=== PATIENT | male | born 1940 | race Caucasian/White ===

== ENCOUNTER 2019-06-30 13:23 | Emergency (ER) | payer OTHER ==
[~2019-06-30] VITALS: Ht 195.6 cm; Wt 102.1 kg
[2019-06-30 13:30] VITALS: BP 172/106
--- NOTE | 2019-06-30 13:44 | NUR ---
Patient ambulated to bed 2 with family. RN evaluating patient at bedside.
--- NOTE | 2019-06-30 13:44 | NUR ---
78 Y/O MALE C/O CHEST PAIN X 2HOURS. PATIENT TOOK NTG X3; ASA 325 X4; AMIODARONE 200MG; AND OMEPRAZOLE. NO RELIEF. BREATHING UNLABORED AND SYMMETRICAL; CLEAR LUNG SOUNDS THROUGHOUT; 95% ON RA; CHEST PAIN IS LOCATED IN THE MIDEPIGASTRIC REGION; NONRADIATING 10/14. DENIES N/V/D. ERMD MADE AWARE OF STATUS. SIDE RAILSX1. PLACED ON MONITOR. WILL CONTINUE TO MONITOR. PMH: QUADRUPLE BYPASS (2009); HIGH BLOOD PRESSURE; INDIGESTION; HIGH CHOLESTEROL; BLOOD CLOTS RX: AMIODARONE; TRAMADOL; OMEPRAZOLE; CARVEDILOL;ATORVASTATIN; ISOSORBIDE MONOITRATE; XARELTO; HCTZ' LOSARTAN; BREO; ASPIRIN
[2019-06-30 14:13] LABS: BASOPHILS % (AUTO) 0.4 % (0.0-2.0); EOSINOPHILS # (AUTO) 0.1 K/uL (0-0.4); EOSINOPHILS % (AUTO) 1.7 % (0.0-4.0); HEMATOCRIT 46.8 % (36-52); HEMOGLOBIN 15.5 g/dL (12.0-18.0); LYMPHOCYTES # (AUTO) 0.8 K/uL (2.0-11.5); LYMPHOCYTES % (AUTO) 10.9 % (20.5-51.1); MEAN CORPUSCULAR HEMOGLOBIN 34 pg (27-31); MEAN CORPUSCULAR HGB CONC 33 g/dL (33-37); MEAN CORPUSCULAR VOLUME 103.2 fL (80-94); MONOCYTES # (AUTO) 0.6 K/uL (0.8-1.0); MONOCYTES % (AUTO) 7.7 % (1.7-9.3); NEUTROPHILS % (AUTO) 79.3 % (42.2-75.2); PLATELET COUNT (AUTO) 149 K/uL (140-450); RED BLOOD CELL COUNT(AUTO) 4.53 MIL/uL (4.20-6.10); RED CELL DISTRIBUTION WIDTH 13.2 % (11.6-13.7); WHITE BLOOD COUNT (AUTO) 7.6 K/uL (4.8-10.8)
--- NOTE | 2019-06-30 14:15 | NUR ---
X-RAY AT BEDSIDE.
[2019-06-30 14:27] LABS: ANION GAP 12.3 (8-16); CARBON DIOXIDE 30.7 mmol/L (21-32); CHLORIDE 99 mmol/L (98-107); CREATININE 1.3 mg/dL (0.7-1.3); GLUCOSE 117 mg/dL (74-106); SODIUM SERUM 138 mmol/L (136-145); UREA NITROGEN, BLOOD 22 mg/dL (7-18)
[2019-06-30 14:34] LABS: ALBUMIN 3.6 g/dL (3.4-5.0); ASPARTATE AMINOTRANSFERASE 15 U/L (15-37); TOTAL BILIRUBIN 0.7 mg/dL (0.0-1.0)
[2019-06-30] MEDS ORDERED: MORPHINE SULFATE 4 MG/ML SYR IVP ONE ×2 (15:00→21:40)
[2019-06-30] MEDS ORDERED: ONDANSETRON 4 MG/2 ML VIAL IVP ONE ×2 (15:00→21:45)
[2019-06-30] MEDS ORDERED: AMIO200T5 PO (15:25)
[2019-06-30] MEDS ORDERED: TRAM50TA1 PO ×2 (15:26→15:28)
[2019-06-30] MEDS ORDERED: OMEP20TC12 PO (15:27)
[2019-06-30] MEDS ORDERED: CARV6.25 PO (15:29)
[2019-06-30] MEDS ORDERED: ISOS60TE3 PO (15:31)
[2019-06-30] MEDS ORDERED: RIVA20TA PO (15:31)
[2019-06-30] MEDS ORDERED: ATOR40TA PO (15:31)
[2019-06-30] MEDS ORDERED: ORE25 PO (15:34)
[2019-06-30] MEDS ORDERED: LOSA25TA43 PO (15:35)
[2019-06-30] MEDS ORDERED: FLUT1POW3 IH (15:36)
[2019-06-30] MEDS ORDERED: ASPI-1718 PO (15:38)
--- NOTE | 2019-06-30 15:44 | NUR ---
PT IS EATING CARDIC DIET IN THE BED. VSS. DAUGHTER IS AT BEDSIDE.
--- NOTE | 2019-06-30 16:52 | NUR ---
PT IS TALKING WITH DAUGHTER AT BEDSIDE. VSS. PT STATES HAVING 0/10 PAIN AT THIS TIME.
--- NOTE | 2019-06-30 17:54 | NUR ---
PT IS RESTING IN THE BED. VSS. DAUGHTER IS AT BEDSIDE.
--- NOTE | 2019-06-30 18:27 | NUR ---
CARDIAC FOOD GIVEN TO PT. PT IS EATING IN THE BED. VSS. DAUGHTER IS AT BEDSIDE.
--- NOTE | 2019-06-30 18:42 | NUR ---
SPOKE TO PT'S DAUGHTER AT BEDSIDE. FOR UPDATES OR EMERGENCY CAN CALL HER LAINEY DAIGLE IF SHE IS NOT HERE.
--- NOTE | 2019-06-30 19:07 | NUR ---
Pt report given to KRISTEN Hinojosa. Transfer of care at this time.
--- NOTE | 2019-06-30 19:08 | NUR ---
REPORT FROM AI PETERSON
[2019-06-30] MEDS ORDERED: ENOXAPARIN 60 MG/0.6 ML SYR SUBQ ONE (19:55)
[2019-06-30] MEDS ORDERED: ENOXAPARIN 30 MG/0.3 ML SYR SUBQ ONE (20:09)
--- NOTE | 2019-06-30 23:02 | NUR ---
CALLED LAB, RECIEVED CALL AT 1938 WITH LAB PERSONEL STATING TROPONIN 1.938, EMR DOES NOT HAVE SECOND TROPONIN INPUT.
--- NOTE | 2019-07-01 01:10 | NUR ---
SPOKE TO LILIA EGG CASER WITH [facility]. AWIATING CALL BACK FROM DR MEDINA REGARDING PT STATTUS, ACCEPTANCE AND ROOM AVAILABILITY.
--- NOTE | 2019-07-01 01:12 | NUR ---
PT resting in bed, AAOX4, denies pain at this time, no SOB, VSS.
--- NOTE | 2019-07-01 01:15 | NUR ---
SPOKE TO LILIA FLAT POLISHER FOR [facility]. INFORMED US THAT DR MEDINA NO LONGER ACCEPTING AND THAT PT NEEDS TO BE MOVED TO ANOTHER FACILITY WITH A SUPERVISOR CENTRAL SUPPLY AND BE TRANSFERED FROM ER TO ER.
--- NOTE | 2019-07-01 01:20 | NUR ---
ACCEPTING PHYSICIAN FROM [facility] DR SIDHU.
--- NOTE | 2019-07-01 01:24 | NUR ---
Patient to be transferred to [facility]. Is being transferred due to HIGHER LEVEL OF CARE. Receiving facility has accepting physician and available space. ER physician has signed transfer form. Patient or responsible democrat has agreed to transfer and signed form. Patient belongings inventoried and will be sent with patient. Copy of nursing notes, lab reports, EKG, Physicians Orders and X-rays to be sent with patient. Report called to KIRAN PETERSON at receiving facility. [facility] ambulance service has been called for transfer. ETA is 2 MINUTES.
--- NOTE | 2019-07-01 01:25 | NUR ---
BENITO PETERSON ATTEMPTED TO HAVE PT SIGN TRANSFER AGGREMENT. PT REFUSED AND STATES WANTS DAUGTER BEFORE MAKING MEDICAL DECISIONS.
--- NOTE | 2019-07-01 01:26 | NUR ---
PT refused to sign transfer request stating that he needs his daughter with him, notified charge nurse Darren.
--- NOTE | 2019-07-01 01:28 | NUR ---
DR HCO ON PHONE WITH DAUGHTER. DR CHO STATES MURTAZARENU BEKAH IS REFUSING TRANSFER. BEKAH IS POWER OF SUGGESTION CLERK. DR CHO EXPLAINED RATIONAL AND RISK/BENIFIT. DAUGHTER CONTINUED TO REFUSE TRANSFER.
--- NOTE | 2019-07-01 01:50 | NUR ---
DAUGHTER BEKAH ARRIVED TO .
--- NOTE | 2019-07-01 01:52 | NUR ---
BEKAH IS REFUSING TRANSPORTATION AT THIS TIME. SHE STATES SHE NEEDS PROOF THAT THE [facility] EKG TECHNICIAN IS INFACT A EKG TECHNICIAN. PT STATES HE WISHES TO TRANSFER AT THIS TIME.
[2019-07-01 02:03] VITALS: BP 140/94
--- NOTE | 2019-07-01 02:03 | NUR ---
PT LEFT VIA [facility].
--- NOTE | 2019-07-01 02:03 | NUR ---
Patient to be transferred to [facility] ER. Is being transferred due to higher level of care. Receiving facility has accepting physician and available space. ER physician has signed transfer form. Patient or responsible democrat has agreed to transfer and signed form. Patient belongings inventoried and will be sent with patient. Copy of nursing notes, lab reports, EKG, Physicians Orders and X-rays to be sent with patient. Report called to Chuckie PETERSON at receiving facility. [facility] ambulance service arrived for transfer.
== END 2019-07-01 02:03 | disposition short-term general hospital (02) ==
LOC: MED 13:23
DX: R07.89 Other chest pain (principal); R79.89 Other specified abnormal findings of blood chemistry; I10 Essential (primary) hypertension; E78.00 Pure hypercholesterolemia, unspecified; Z79.82 Long term (current) use of aspirin; Z79.899 Other long term (current) drug therapy
CPT/HCPCS: 36415; 71045; 80053; 83880; 84484; 85025; 85379; 93005; 96372; 96374; 96375; 96376; 99285; J1650; J2270; J2405; Q0092

== ENCOUNTER 2019-08-19 08:36 | Inpatient (IN) | payer OTHER ==
[~2019-08-19] VITALS: Ht 195.6 cm; Wt 109.8 kg
[~2019-08-19 08:36] MED LIST: AMIO200T5 PO; ASPI-1822 PO; ATOR40TA PO; CARV6.25 PO; FLUT1POW3 IH; ISOS60TE3 PO; LOSA25TA43 PO; OMEP20TC12 PO; ORE25 PO; RIVA20TA PO; TRAM50TA1 PO
[2019-08-19 08:44] VITALS: BP 111/67
--- NOTE | 2019-08-19 08:57 | NUR ---
PT WALKED TO ROOM 8 WITH CO BOOD DIARRHEA SINCE THIS MORNING. PT WAS A/OX4, SPEAKS FULL SENTENCES, FOLLOWS COMMAND, DENIES BRENNAN AND DIZZINESS. NO SOB. BREATHING EVEN. ABDOMEN ROUND AND SOFT. PT AMBULATES IN FLOOR IN STEADY GAIT.
--- NOTE | 2019-08-19 08:59 | NUR ---
DR. PARISH YEE TO EXAMINE PT.
[2019-08-19] MEDS ORDERED: NACL 0.9% 1,000 ML IV ONE (09:00)
--- NOTE | 2019-08-19 09:04 | NUR ---
LAB IS BEDSIDE TO DRAW BLOOD.
--- NOTE | 2019-08-19 09:20 | NUR ---
SL ESTABLISHED ON LAC. 20G. NS.0.9% BOLUS STARTED. BLOOD DRAWN AND PICKEDUP BY LAB. PT THEN WAS TAKEN TO CT.
[2019-08-19 09:30] LABS: BASOPHILS # (AUTO) 0.1 K/uL (0.00-0.22); BASOPHILS % (AUTO) 1.3 % (0.0-2.0); EOSINOPHILS # (AUTO) 0.3 K/uL (0-0.4); EOSINOPHILS % (AUTO) 4.2 % (0.0-4.0); HEMATOCRIT 41.7 % (36-52); HEMOGLOBIN 13.8 g/dL (12.0-18.0); LYMPHOCYTES # (AUTO) 1.1 K/uL (2.0-11.5); LYMPHOCYTES % (AUTO) 18.6 % (20.5-51.1); MEAN CORPUSCULAR HEMOGLOBIN 34 pg (27-31); MEAN CORPUSCULAR HGB CONC 33 g/dL (33-37); MEAN CORPUSCULAR VOLUME 102.1 fL (80-94); MONOCYTES # (AUTO) 0.7 K/uL (0.8-1.0); MONOCYTES % (AUTO) 11.6 % (1.7-9.3); NEUTROPHILS % (AUTO) 64.3 % (42.2-75.2); PLATELET COUNT (AUTO) 126 K/uL (140-450); RED BLOOD CELL COUNT(AUTO) 4.09 MIL/uL (4.20-6.10); RED CELL DISTRIBUTION WIDTH 13.2 % (11.6-13.7); WHITE BLOOD COUNT (AUTO) 6.2 K/uL (4.8-10.8)
[2019-08-19 09:49] LABS: ALBUMIN 3.8 g/dL (3.4-5.0); ASPARTATE AMINOTRANSFERASE 24 U/L (15-37); CARBON DIOXIDE 31.8 mmol/L (21-32); CHLORIDE 102 mmol/L (98-107); CREATININE 1.6 mg/dL (0.6-1.3); GLUCOSE 104 mg/dL (74-106); POTASSIUM 4.8 mmol/L (3.5-5.1); SODIUM SERUM 141 mmol/L (136-145); TOTAL BILIRUBIN 0.7 mg/dL (0.0-1.0); UREA NITROGEN, BLOOD 33 mg/dL (7-18)
[2019-08-19 09:58] LABS: PROTHROMBIN TIME 11.8 secs (10.8-13.4)
[2019-08-19] MEDS ORDERED: FURO-570 PO (12:11)
[2019-08-19] MEDS ORDERED: SACU1TAB9 PO (12:11)
--- NOTE | 2019-08-19 12:35 | NUR ---
RECEIVED PATIENT FROM ED NURSE FOR CONTINUITY OF CARE. PATIENT IS AAOX4. RESPIRATIONS EVEN AND UNLABORED, ROOM AIR. VISIBLE CHEST RISE NOTED. PATIENT HAS HX OF HEART ATTACK. ABDOMEN SOFT, NONTENDER. HX OF HERNIA. PATIENT IS DIAGNOSED WITH GI BLEED. CHIEF COMPLAINT IS BLOODY DIARRHEA X3. SKIN WARM, DRY, AND INTACT. IV IN THE LEFT AC GAUGE 20, SALINE LOCK. IV FLUSHED WELL. PATIENT IS AMBULATORY. BED IN LOW POSITION. CALL LIGHT IS WITHIN REACH. WILL CONTINUE TO MONITOR
--- NOTE | 2019-08-19 12:39 | NUR ---
PT GOT ROOM 112A IN MED/SURG. PT WAS SENT TO FLOOR BY W/C IN STABLE CONDITION. REPORT GIVEN TO FLOOR RN BEDSIDE.
--- NOTE | 2019-08-19 12:40 | NUR ---
MRSA NARES SWAB COLLECTED
--- NOTE | 2019-08-19 12:51 | NUR ---
RECEIVED A COPY OF PATIENT'S POLST AND POWER OF [employer]ITE SUGAR SUPERVISOR, BEKAH. HER PHONE NUMBER IS [phone].
--- NOTE | 2019-08-19 13:26 | NUR ---
GIVEN 2 WARM BLANKETS AND ICE CHIPS
--- NOTE | 2019-08-19 14:36 | NUR ---
RECEIVED A TELEPHONE ORDERS FROM DR. QUINTEROS: CLEAR LIQUID DIET; D5NS AT 75 ML/HR. CBC Q8H.. WILL CARRY ORDERS
--- NOTE | 2019-08-19 14:42 | NUR ---
LAB AT BEDSIDE FOR CBC
--- NOTE | 2019-08-19 14:45 | NUR ---
BEKAH, DAUGHTER OF THE PATIENT, IS COMPLAINING ABOUT PATIENT'S CARE. INFORMED THAT DR. QUINTEROS WILL COME AND TALK TO THE PATIENT AND HER.
[2019-08-19 14:51] LABS: BASOPHILS % (AUTO) 0.7 % (0.0-2.0); EOSINOPHILS # (AUTO) 0.1 K/uL (0-0.4); EOSINOPHILS % (AUTO) 2.6 % (0.0-4.0); HEMOGLOBIN 12.6 g/dL (12.0-18.0); LYMPHOCYTES # (AUTO) 0.7 K/uL (2.0-11.5); LYMPHOCYTES % (AUTO) 13.5 % (20.5-51.1); MEAN CORPUSCULAR HEMOGLOBIN 34 pg (27-31); MEAN CORPUSCULAR HGB CONC 33 g/dL (33-37); MEAN CORPUSCULAR VOLUME 101.8 fL (80-94); MONOCYTES # (AUTO) 0.5 K/uL (0.8-1.0); MONOCYTES % (AUTO) 8.8 % (1.7-9.3); NEUTROPHILS # (AUTO) 4.1 K/uL (1.8-7.7); NEUTROPHILS % (AUTO) 74.4 % (42.2-75.2); PLATELET COUNT (AUTO) 106 K/uL (140-450); RED BLOOD CELL COUNT(AUTO) 3.73 MIL/uL (4.20-6.10); RED CELL DISTRIBUTION WIDTH 13.2 % (11.6-13.7); WHITE BLOOD COUNT (AUTO) 5.5 K/uL (4.8-10.8)
[2019-08-19] MEDS: DEXT 5% /NACL 0.9% 1,000 ML IV SCH (14:54)
--- NOTE | 2019-08-19 14:54 | NUR ---
HANG IV BAG OF D5NS AT 75 ML/HR PER MD ORDER.
[2019-08-19] MEDS ORDERED: traMADol 50 MG TAB PO PRN (15:55)
[2019-08-19 16:00] VITALS: BP 118/66
[2019-08-19] MEDS ORDERED: diphenhydrAMINE 50 MG/ML VIAL IVP PRN (16:00)
[2019-08-19] MEDS ORDERED: IPRATROPIUM 0.02% 0.5 MG/2.5 ML NEBU INH PRN (16:00)
[2019-08-19] MEDS ORDERED: ALUMINUM HYD/MAG/SIMETHICONE 30 ML UDC PO PRN (16:00)
[2019-08-19] MEDS ORDERED: guaiFENesin DM 200/20 MG-10 ML 10 ML UDC PO PRN (16:00)
[2019-08-19] MEDS ORDERED: SODIUM PHOSPHATE 118 ML ENEM RC PRN (16:00)
[2019-08-19] MEDS ORDERED: ONDANSETRON 4 MG/2 ML VIAL IVP PRN (16:00)
[2019-08-19] MEDS ORDERED: ACETAMINOPHEN 650 MG SUPP RC PRN (16:00)
[2019-08-19] MEDS ORDERED: cloNIDine 0.1 MG TAB PO PRN (16:00)
[2019-08-19] MEDS ORDERED: ACETAMINOPHEN 325 MG TAB PO PRN (16:00)
[2019-08-19] MEDS ORDERED: MAG SULF 2000 MG/WATER PREMIX 50 ML IV PRN (16:00)
[2019-08-19] MEDS ORDERED: LORazepam 2 MG/ML VIAL IVP PRN (16:00)
[2019-08-19] MEDS ORDERED: MORPHINE SULFATE 2 MG/ML SYR IVP PRN (16:00)
[2019-08-19] MEDS ORDERED: BISACODYL 10 MG SUPP RC PRN (16:00)
[2019-08-19] MEDS ORDERED: ALBUTEROL 0.083% 2.5 MG/3 ML NEBU INH PRN (16:00)
[2019-08-19] MEDS ORDERED: DOCUSATE SODIUM 250 MG GELCAP PO PRN (16:00)
[2019-08-19] MEDS ORDERED: HYDROcodone/APAP 5/325 MG 1 TAB TAB PO PRN ×2 (16:00)
[2019-08-19] MEDS ORDERED: MAGNESIUM OXIDE 400 MG TAB PO PRN (16:00)
[2019-08-19] MEDS ORDERED: POTASSIUM CHLORIDE 10 MEQ TABER PO PRN (16:00)
--- NOTE | 2019-08-19 16:04 | NUR ---
DR. QUINTEROS MADE ROUNDS. SPEAKING WITH THE PATIENT AND DAUGHTER
[2019-08-19] MEDS ORDERED: CARVEDILOL 3.125 MG TAB PO SCH (16:18)
--- NOTE | 2019-08-19 16:18 | NUR ---
PATIENT IS ON TELE MONITORING NOW
--- NOTE | 2019-08-19 16:35 | NUR ---
GIVEN COREG PO. EXPLAINED MEDICATION. WILL CONTINUE TO MONITOR
--- NOTE | 2019-08-19 16:42 | NUR ---
DAUGHTER BEKAH GIVEN BOTTLE OF ENTRESTO WITH 5 PILLS. BROUGHT IT TO PHARMACY BUT THEY'RE CLOSE. GIVEN IT TO SHERRI, ADMIN. SHERRI SAID SHE WILL CALL PHARMACY TO GIVE THE MEDICATION BECAUSE PATIENT HAS SCHEDULED ONE TONIGHT.
--- NOTE | 2019-08-19 17:10 | NUR ---
FOR ANY QUESTIONS OR PATIENT'S CHANGE OF CONDITION PLEASE NOTIFY BEKAH, POWER OF HAT SIZER, AT [phone]
--- NOTE | 2019-08-19 17:19 | NUR ---
PER SHERRI, PHARMACY STAFF WON'T BE COMING TONIGHT. PATIENT'S MEDICATION IS IN THE CASSETTE. WILL LET DR. QUINTEROS KNOW IF PATIENT'S HOME MEDICATION IS OKAY TO USE
--- NOTE | 2019-08-19 17:23 | NUR ---
PAGED DR. QUINTEROS FOR ORDERS. WILL WAIT FOR CALL BACK
--- NOTE | 2019-08-19 17:36 | NUR ---
PER DR. AYERS, HOLD ENTRESTO FOR for; to (do)
--- NOTE | 2019-08-19 17:57 | NUR ---
PATIENT VOIDED. VISIBLE BRIGHT RED BLOOD AND SMALL CLOTS NOTED. CHARGE NURSE AWARE.
--- NOTE | 2019-08-19 18:34 | NUR ---
PATIENT IS LAYING IN BED. NO SIGNS OF DISTRESS NOTED. BED IN LOW POSITION. CALL LIGHT IS WITHIN REACH. WILL CONTINUE TO MONITOR
--- NOTE | 2019-08-19 19:09 | NUR ---
ENDORSED PATIENT TO THE EMBEDDED SOFTWARE ENGINEER NURSE FOR CONTINUITY OF CARE. PATIENT IS IN STABLE CONDITION.
--- NOTE | 2019-08-19 19:10 | NUR ---
RECEIVED BEDSIDE SHIFT REPORT FROM [facility] ROCHELLE. PATIENT AWAKE AND ALERT IN BED. RESPIRATIONS EVEN AND UNLABORED ON RA. IV SITE ASSESSED, FLUSHED AND PATENT. NO SIGNS OF DISTRESS NOTED. SAFETY MEASURES IN PLACE BED IN LOW POSITION AND CALL-LIGHT WITHIN REACH.
--- NOTE | 2019-08-19 19:50 | NUR ---
PT PERIPHERAL IV SITE CHANGED PER PATIENT REQUEST. PT STATES HE EXPERIENCED TENDERNESS AT IV SITE. LEFT HAND 22 GAUGE INSERTED. PT TOLERATED WELL. IV PATENT.
[2019-08-19 20:00] VITALS: BP 104/54
--- NOTE | 2019-08-19 20:35 | NUR ---
TALKED TO DR. AYERS REGARDING PT INSISTED ON TAKING HOME MEDICATION ENTRESTO, PER . SINCE PT BP IS LOW 104/54 AND HR OF 59, DOESN'T RECOMMEND TAKING THE MEDICATION BECAUSE IT WILL LOWER HIS BP MORE. DR. AYERS RECOMMENDS HOLDING THE MEDICATION UNLESS PT SBP ABOVE 110. EXPLAINED TO PT REGARDING MEDICATION CONCERN BY THE DR. PT THEN STATED UNDERSTANDING, WILL HOLD MEDICATION PER ORDER. PT RESTING, NO DISTRESS NOTED, CALL LIGHT WITHIN REACH, WILL CONTINUE TO MONITOR.
[2019-08-19] MEDS ORDERED: ZOLPIDEM 5 MG TAB PO PRN (21:00)
[2019-08-19] MEDS ORDERED: ATORVASTATIN 20 MG TAB PO SCH (21:00)
[2019-08-19] MEDS: NON-FORMULARY ITEM (Sacubitril/Valsartan (Entresto 49 mg-51 mg Tablet) 1 EACH) PO SCH (21:00)
--- NOTE | 2019-08-19 21:00 | NUR ---
DID NOT ADMINISTER PT ATORVASTATIN BECAUSE PATIENT REFUSED. PT STATES HE TOOK THE MEDICATION AT HOME TODAY AT 8AM ITS HIS REGULAR SCHEDULED MEDICATION TIME.
[2019-08-19 22:18] LABS: BASOPHILS % (AUTO) 0.9 % (0.0-2.0); EOSINOPHILS # (AUTO) 0.1 K/uL (0-0.4); EOSINOPHILS % (AUTO) 2.4 % (0.0-4.0); HEMATOCRIT 35.1 % (36-52); HEMOGLOBIN 11.6 g/dL (12.0-18.0); LYMPHOCYTES # (AUTO) 0.7 K/uL (2.0-11.5); LYMPHOCYTES % (AUTO) 16.1 % (20.5-51.1); MEAN CORPUSCULAR HEMOGLOBIN 34 pg (27-31); MEAN CORPUSCULAR HGB CONC 33 g/dL (33-37); MEAN CORPUSCULAR VOLUME 101.9 fL (80-94); MONOCYTES # (AUTO) 0.6 K/uL (0.8-1.0); MONOCYTES % (AUTO) 12.4 % (1.7-9.3); NEUTROPHILS # (AUTO) 3.1 K/uL (1.8-7.7); NEUTROPHILS % (AUTO) 68.2 % (42.2-75.2); PLATELET COUNT (AUTO) 104 K/uL (140-450); RED BLOOD CELL COUNT(AUTO) 3.45 MIL/uL (4.20-6.10); WHITE BLOOD COUNT (AUTO) 4.6 K/uL (4.8-10.8)
--- NOTE | 2019-08-19 23:42 | NUR ---
HOURLY ROUNDING. PT SLEEPING. EASILY AROUSABLE TO SOUND. RESPIRATIONS EVEN AND UNLABORED ON ROOM AIR. NO SIGNS OF DISTRESS NOTED. TELE MONITOR IN PLACE. SAFETY MEASURES IN PLACE BED IN LOW POSITION AND CALL LIGHT WITHIN REACH. WILL CONTINUE TO MONITOR
[2019-08-20] VITALS: BP 109/56
--- NOTE | 2019-08-20 01:43 | NUR ---
HOURLY ROUNDING. PATIENT SLEEPING EASILY AROUSABLE. NO SIGNS OF DISTRESS NOTED. RESPIRATIONS EVEN AND UNLABORED ON ROOM AIR. SAFETY MEASURES IN PLACE. CALL LIGHT WITHIN REACH. WILL CONTINUE TO MONITOR
[2019-08-20 04:00] VITALS: BP 144/72
[2019-08-20] MEDS: DEXT 5% /NACL 0.9% 1,000 ML IV SCH ×3 (05:52→22:27)
[2019-08-20 06:39] LABS: EOSINOPHILS # (AUTO) 0.2 K/uL (0-0.4); EOSINOPHILS % (AUTO) 3.6 % (0.0-4.0); HEMATOCRIT 35.2 % (36-52); HEMOGLOBIN 11.7 g/dL (12.0-18.0); LYMPHOCYTES # (AUTO) 0.7 K/uL (2.0-11.5); MEAN CORPUSCULAR HEMOGLOBIN 34 pg (27-31); MEAN CORPUSCULAR HGB CONC 33 g/dL (33-37); MEAN CORPUSCULAR VOLUME 102.9 fL (80-94); MONOCYTES # (AUTO) 0.5 K/uL (0.8-1.0); MONOCYTES % (AUTO) 11.5 % (1.7-9.3); NEUTROPHILS # (AUTO) 3.3 K/uL (1.8-7.7); NEUTROPHILS % (AUTO) 68.9 % (42.2-75.2); PLATELET COUNT (AUTO) 98 K/uL (140-450); RED BLOOD CELL COUNT(AUTO) 3.43 MIL/uL (4.20-6.10); RED CELL DISTRIBUTION WIDTH 13.4 % (11.6-13.7); WHITE BLOOD COUNT (AUTO) 4.7 K/uL (4.8-10.8)
--- NOTE | 2019-08-20 07:25 | NUR ---
ENDORSED PATIENT TO DAYSHIFT NURSE GOVIND AT BEDSIDE FOR CONTINUITY OF CARE. PT SLEEPING EASILY AROUSABLE.
--- NOTE | 2019-08-20 07:30 | NUR ---
RECEIVED BEDSIDE REPORT FROM NIGHTSHIFT NURSE. PT RESTING IN BED. ABLE TO MAKE NEEDS KNOWN. RESPIRATIONS EVEN AND UNLABORED WITH NO SOB OR RESPIRATORY DISTRESS. SKIN WARM AND DRY TO TOUCH. IV SITE IN LEFT HAND 22G IS CLEAN, DRY, AND INTACT. SAFETY MEASURES IN PLACE. WILL CONTINUE TO MONITOR
[2019-08-20 08:00] VITALS: BP 121/48
[2019-08-20] MEDS ORDERED: NON-FORMULARY ITEM (Omeprazole (Omeprazole) 20 MG) PO SCH (08:30)
[2019-08-20] MEDS: CARVEDILOL 3.125 MG TAB PO SCH (08:47)
[2019-08-20] MEDS: AMIODARONE 200 MG TAB PO SCH (08:48)
[2019-08-20] MEDS: ISOSORBIDE MONONITRATE 30 MG TABER PO SCH (08:48)
[2019-08-20] MEDS: PANTOPRAZOLE 40 MG TABEC PO SCH (08:55)
[2019-08-20] MEDS: FUROSEMIDE 40 MG TAB PO SCH (08:55)
--- NOTE | 2019-08-20 08:57 | NUR ---
ADMINISTERED SCHED MED PRESCRIBED PER MD ORDER. PT TOLERATED WELL. MEDICATION EDUCATION PERFORMED. PT VERBALIZED UNDERSTANDING. SAFETY MEASURES IN PLACE. WILL CONTINUE TO MONITOR
[2019-08-20] MEDS: NON-FORMULARY ITEM (Sacubitril/Valsartan (Entresto 49 mg-51 mg Tablet) 1 EACH) PO SCH ×2 (09:00→20:09)
[2019-08-20] MEDS ORDERED: NON-FORMULARY ITEM (Isosorbide Mononitrate (Isosorbide Mononitrate ER) 1 TAB) PO SCH (09:00)
[2019-08-20] MEDS ORDERED: ENTRESTO PO SCH (09:45)
--- NOTE | 2019-08-20 09:45 | NUR ---
HOURLY ROUNDING. PT RESTING IN BED. ABLE TO MAKE NEEDS KNOWN. RESPIRATIONS EVEN AND UNLABORED WITH NO SOB OR RESPIRATORY DISTRESS. SKIN WARM AND DRY TO TOUCH. SAFETY MEASURES IN PLACE. WILL CONTINUE TO MONITOR
--- NOTE | 2019-08-20 10:22 | NUR ---
ADMINISTERED SCHED MED PRESCRIBED PER MD ORDER. PT TOLERATED WELL. MEDICATION EDUCATION PERFORMED. PT VERBALIZED UNDERSTANDING. SAFETY MEASURES IN PLACE. WILL CONTINUE TO MONITOR
[2019-08-20 12:00] VITALS: BP 115/54
--- NOTE | 2019-08-20 12:45 | NUR ---
PT IV SITE WENT BAD. IT IS NO LONGER FUNCTIONING PROPERLY. NEW IV REINSERTED IN RIGHT FA 22G IS CLEAN, DRY, AND INTACT. WILL CONTINUE TO MONITOR
[2019-08-20] MEDS ORDERED: ATORVASTATIN 20 MG TAB PO SCH (12:51)
[2019-08-20] MEDS: ATORVASTATIN 20 MG TAB PO SCH (13:47)
--- NOTE | 2019-08-20 13:47 | NUR ---
ADMINISTERED SCHED MED PRESCRIBED PER MD ORDER. PT TOLERATED WELL. MEDICATION EDUCATION PERFORMED. PT VERBALIZED UNDERSTANDING. SAFETY MEASURES IN PLACE. WILL CONTINUE TO MONITOR
--- NOTE | 2019-08-20 14:15 | NUR ---
PATIENT REFUSED TO BE TURNED OR REPOSITIONED PER PARCEL CONTRACTOR. WHEN REPOSITIONING THE PATIENT WAS SCREAMING "MAMA" UNTIL HE WAS REPOSITIONED ON HIS BACK WITHOUT ANY PILLOWS. INSTRUCTED PATIENT THE IMPORTANCE OF REPOSITIONING BUT HE INSISTED ON LYING ON HIS BACK. SAFETY MEASURES IN PLACE. WILL CONTINUE TO MONITOR
[2019-08-20 15:37] LABS: BASOPHILS % (AUTO) 0.7 % (0.0-2.0); EOSINOPHILS # (AUTO) 0.2 K/uL (0-0.4); EOSINOPHILS % (AUTO) 3.2 % (0.0-4.0); HEMATOCRIT 39.2 % (36-52); HEMOGLOBIN 12.9 g/dL (12.0-18.0); LYMPHOCYTES # (AUTO) 0.9 K/uL (2.0-11.5); LYMPHOCYTES % (AUTO) 15.7 % (20.5-51.1); MEAN CORPUSCULAR HEMOGLOBIN 34 pg (27-31); MEAN CORPUSCULAR HGB CONC 33 g/dL (33-37); MEAN CORPUSCULAR VOLUME 102.5 fL (80-94); MONOCYTES # (AUTO) 0.6 K/uL (0.8-1.0); MONOCYTES % (AUTO) 10.4 % (1.7-9.3); NEUTROPHILS # (AUTO) 4.2 K/uL (1.8-7.7); PLATELET COUNT (AUTO) 129 K/uL (140-450); RED BLOOD CELL COUNT(AUTO) 3.83 MIL/uL (4.20-6.10); RED CELL DISTRIBUTION WIDTH 13.1 % (11.6-13.7); WHITE BLOOD COUNT (AUTO) 5.9 K/uL (4.8-10.8)
[2019-08-20 16:00] VITALS: BP 135/61
--- NOTE | 2019-08-20 17:36 | NUR ---
ADMINISTERED SCHED IVF PRESCRIBED PER MD ORDER. PT TOLERATED WELL. MEDICATION EDUCATION PERFORMED. PT VERBALIZED UNDERSTANDING. SAFETY MEASURES IN PLACE. WILL CONTINUE TO MONITOR
--- NOTE | 2019-08-20 18:05 | NUR ---
PT EATING DINNER. NO DISTRESS NOTED. NO COMPLICATIONS OR CONCERNS AT THIS TIME. SAFETY MEASURES IN PLACE. WILL CONTINUE TO MONITOR
--- NOTE | 2019-08-20 19:02 | NUR ---
ENDORSED AT BEDSIDE WITH NIGHTSHIFT NURSE. PT RESTING IN BED. ABLE TO MAKE NEEDS KNOWN. RESPIRATIONS EVEN AND UNLABORED WITH NO SOB OR RESPIRATORY DISTRESS. SKIN WARM AND DRY TO TOUCH. SAFETY MEASURES IN PLACE. PT IS STABLE
--- NOTE | 2019-08-20 19:03 | NUR ---
RECEIVED BEDSIDE REPORT FROM DAY RN. PT IS AAOX4. RESPIRATIONS ARE EQUAL AND UNLABORED ON ROOM AIR. LUNG SOUNDS ARE CLEAR. C/C BLOOD STOOL. PER RN PT BM TODAY NORMAL WITH NO S/S OF BLOOD. PT IS AMBULATORY ABLE TO MAKE NEEDS KNOWN. SKIN IS INTACT. IV ON R HAND 22G IF PER ORDERS. CONSULT WITH GI PENDING. POC DISCUSSED CALL LIGHT IS WITHIN REACH. WILL CONTINUE TO MONITOR.
--- NOTE | 2019-08-20 19:29 | NUR ---
RECEIVED PATIENT ON ROOM AIR, PULSE OX SAT 96%. PT DENIES SOB. PRN HHN NOT INDICATED AT THIS TIME. PT MADE AWARE OF ORDERED MEDICATION FREQUENCY AND INSTRUCTED TO CALL NEEDED FOR SOB. NO ACUTE RESPIRATORY DISTRESS NOTED AT THIS TIME. WILL CONTINUE TO MONITOR.
[2019-08-20 20:00] VITALS: BP 135/51
[2019-08-20] MEDS: ENTRESTO PO SCH (20:09)
--- NOTE | 2019-08-20 20:09 | NUR ---
VSS. LUNG SOUNDS ARE CLEAR. ABD SOFT NON-DISTEND. BOWEL SOUNDS ACTIVE X4. DICKSON MEDICATION GIVEN PER ORDER. EDUCATED PT ON S/E VERBALIZED UNDERSTANDING. ALL NEEDS MET AT THIS TIME. CALL LIGHT IS WITHIN REACH. WILL CONTINUE TO MONITOR.
[2019-08-20 22:23] LABS: BASOPHILS % (AUTO) 1.1 % (0.0-2.0); EOSINOPHILS # (AUTO) 0.2 K/uL (0-0.4); EOSINOPHILS % (AUTO) 4.1 % (0.0-4.0); HEMATOCRIT 35.5 % (36-52); HEMOGLOBIN 11.7 g/dL (12.0-18.0); LYMPHOCYTES # (AUTO) 0.6 K/uL (2.0-11.5); LYMPHOCYTES % (AUTO) 15.2 % (20.5-51.1); MEAN CORPUSCULAR HEMOGLOBIN 34 pg (27-31); MEAN CORPUSCULAR HGB CONC 33 g/dL (33-37); MEAN CORPUSCULAR VOLUME 102.5 fL (80-94); MONOCYTES # (AUTO) 0.5 K/uL (0.8-1.0); MONOCYTES % (AUTO) 11.1 % (1.7-9.3); NEUTROPHILS # (AUTO) 2.9 K/uL (1.8-7.7); NEUTROPHILS % (AUTO) 68.5 % (42.2-75.2); PLATELET COUNT (AUTO) 103 K/uL (140-450); RED BLOOD CELL COUNT(AUTO) 3.47 MIL/uL (4.20-6.10); WHITE BLOOD COUNT (AUTO) 4.2 K/uL (4.8-10.8)
--- NOTE | 2019-08-20 22:30 | NUR ---
MADE ROUNDS. PT RESTING COMFORTABLY IN BED. NO S/S OF DISTRESS. GAVE APPLE JUICE PER REQUEST. ALL NEEDS MET. CALL LIGHT IS WITHIN REACH.
[2019-08-21] VITALS: BP 117/64
--- NOTE | 2019-08-21 | NUR ---
VITAL SIGNS ARE WITHIN NORMAL LIMITS. ALL NEEDS MET. CALL LIGHT IS WITHIN REACH.
--- NOTE | 2019-08-21 02:04 | NUR ---
PT IS SLEEPING COMFORTABLY IN BED WITH EYES CLOSED. CHEST RISE AND FALL NOTED. CALL LIGHT IS WITHIN REACH. WILL CONTINUE TO MONITOR.
[2019-08-21 04:00] VITALS: BP 107/55
--- NOTE | 2019-08-21 04:02 | NUR ---
VITAL SIGNS ARE WITHIN NORMAL LIMITS. ALL NEEDS MET. CALL LIGHT IS WITHIN REACH.
[2019-08-21 06:30] LABS: BASOPHILS # (AUTO) 0.1 K/uL (0.00-0.22); BASOPHILS % (AUTO) 1.3 % (0.0-2.0); EOSINOPHILS # (AUTO) 0.2 K/uL (0-0.4); EOSINOPHILS % (AUTO) 3.9 % (0.0-4.0); HEMOGLOBIN 11.8 g/dL (12.0-18.0); LYMPHOCYTES # (AUTO) 0.6 K/uL (2.0-11.5); LYMPHOCYTES % (AUTO) 14.3 % (20.5-51.1); MEAN CORPUSCULAR HEMOGLOBIN 34 pg (27-31); MEAN CORPUSCULAR HGB CONC 33 g/dL (33-37); MEAN CORPUSCULAR VOLUME 102.4 fL (80-94); MONOCYTES # (AUTO) 0.6 K/uL (0.8-1.0); MONOCYTES % (AUTO) 12.3 % (1.7-9.3); NEUTROPHILS # (AUTO) 3.1 K/uL (1.8-7.7); NEUTROPHILS % (AUTO) 68.2 % (42.2-75.2); PLATELET COUNT (AUTO) 101 K/uL (140-450); RED BLOOD CELL COUNT(AUTO) 3.52 MIL/uL (4.20-6.10); RED CELL DISTRIBUTION WIDTH 13.2 % (11.6-13.7); WHITE BLOOD COUNT (AUTO) 4.6 K/uL (4.8-10.8)
--- NOTE | 2019-08-21 06:54 | NUR ---
PT LAYING COMFORTABLY IN BED USING CELLPHONE DENIES PAIN. WILL ENDORSE TO DAY RN. PT IS STABLE.
--- NOTE | 2019-08-21 07:24 | NUR ---
SHIFT REPORT RECEIVED FROM [employer] AUDITOR NURSE. PT IS IN BED AWAKE ALERT AND RESPONSIVE. NO COMPLAINS OF PAIN. NO DISTRESS NOTED. CALL LIGHT IN REACH.
[2019-08-21 08:00] VITALS: BP 115/64
[2019-08-21] MEDS: ATORVASTATIN 20 MG TAB PO SCH (08:29)
[2019-08-21] MEDS: PANTOPRAZOLE 40 MG TABEC PO SCH (08:30)
[2019-08-21] MEDS: ISOSORBIDE MONONITRATE 30 MG TABER PO SCH (08:30)
[2019-08-21] MEDS: FUROSEMIDE 40 MG TAB PO SCH (08:30)
[2019-08-21] MEDS: AMIODARONE 200 MG TAB PO SCH (08:31)
[2019-08-21] MEDS: ENTRESTO PO SCH (08:33)
[2019-08-21] MEDS: CARVEDILOL 3.125 MG TAB PO SCH (08:34)
[2019-08-21] MEDS: NON-FORMULARY ITEM (Sacubitril/Valsartan (Entresto 49 mg-51 mg Tablet) 1 EACH) PO SCH (09:00)
--- NOTE | 2019-08-21 09:44 | NUR ---
PT IS IN BED AWAKE ALERT AND RESPONSIVE. PT'S LUNGS ARE CLEAR ON ASSESSMENT. NO DISTRESS NOTED. PT REFUSED CARVEDILOL THIS AM. NO COMPLAINS OF PAIN. WILL CONTINUE TO MONITOR. CALL LIGHT IN REACH.
--- NOTE | 2019-08-21 11:30 | NUR ---
PT IS SITTING BY SIDE OF BED. PT IS RESPONSIVE. NO COMPLAINS OF PAIN. WILL CONTINUE TO MONITOR. CALL LIGHT IN REACH.
[2019-08-21 12:00] VITALS: BP 109/52
[2019-08-21] MEDS ORDERED: RIVA20TA PO (12:50)
--- NOTE | 2019-08-21 14:30 | NUR ---
PT WAS DISCHARGED TODAY. PT IS ALERT AND RESPONSIVE. DISCHARGE INSTRUCTIONS GIVEN TO PATIENT. SKIN INTACT. NO COMPLAINS OF PAIN. PT WILL FOLLOW UP WITH PCP UPON DISCHARGE. NO PRESCRIPTION GIVEN. PT IS STABLE AND AMBULATED WITH A STEADY GAIT UPON DISCHARGE. PT CALLED DAUGHTER TO PICK HIM UP. IV REMOVED. ID BAND REMOVED. NO COMPLAINS OF PAIN REPORTED.
== END 2019-08-21 14:40 | disposition home or self-care (01) | DRG 378 ==
LOC: MED 08:36 → MTU 12:24
PROVIDERS: ADMIT Internal Medicine Pulmonary Disease; ATTEND Internal Medicine Pulmonary Disease
DX: K57.31 Diverticulosis of large intestine without perforation or abscess with bleeding (principal); I50.20 Unspecified systolic (congestive) heart failure; D64.9 Anemia, unspecified; E78.5 Hyperlipidemia, unspecified; I11.0 Hypertensive heart disease with heart failure; I25.10 Atherosclerotic heart disease of native coronary artery without angina pectoris; J44.9 Chronic obstructive pulmonary disease, unspecified; I48.0 Paroxysmal atrial fibrillation; Z95.1 Presence of aortocoronary bypass graft; Z79.899 Other long term (current) drug therapy; Z79.82 Long term (current) use of aspirin; Z79.01 Long term (current) use of anticoagulants
CPT/HCPCS: 36415; 80053; 85025; 85610; 85730; 87081; 96360; 99285; J7042